=== PATIENT | male | born 1965 | race Caucasian/White ===

== ENCOUNTER 2017-06-21 07:44 | Day surgery (SDC) | payer OTHER ==
--- NOTE | 2017-06-03 15:53 | HP ---
DATE OF ADMISSION: 06/21/2017 The patient is to be admitted to the [facility] surgical system for surgery in the near future (date to be determined). 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 He presents now for repair of a recurrent left inguinal hernia. According to the patient, this hernia was initially repaired seven years ago. He subsequently went on to develop a recurrence which was again repaired and which has since recurred. He has undergone a right inguinal hernia repair which was complicated by an intraabdominal process that required laparotomy as well. He has also had a prior radical prostatectomy. He has no underlying GI, or respiratory complaints to suggest predisposition to hernia formation. The patient states his job is very physical and that that has very likely contributed to his hernia problems. PAST MEDICAL HISTORY: Significant only for prostate cancer. No history of hypertension, diabetes, respiratory, or hepatic insufficiency. PAST SURGICAL HISTORY: Significant for robotic prostatectomy in August of 2014. He also had a laparotomy at the time of his right inguinal hernia repair due to a postoperative complication, the details of which are unclear. He has repair. He has had two hernia surgeries at the level of the left groin. ALLERGIES: None known. REGULAR MEDICATIONS: None. SOCIAL HISTORY: Negative for tobacco and, alcohol. FAMILY HISTORY: Father age 76 with a history of heart disease. Mother age 75 with a history of heart disease. Siblings - one with Crohn disease. REVIEW OF SYSTEMS: Otherwise none. PHYSICAL EXAMINATION: GENERAL: The patient was examined while in the erect and supine positions. ABDOMEN: There are a multitude of scars noted about the lower abdominal wall as well as about the right and left groins. Clinically, there is an obvious recurrent left inguinal hernia noted. It is reducible. The right groin is intact. Testes are bilaterally atrophic. (Note: The patient is wearing a pad for urinary incontinence. The patient states it does deal with impotence.) IMPRESSION: Recurrent left inguinal hernia. PLAN: Repair, recurrent left inguinal hernia with mesh. Indications, alternatives and possible complications were reviewed. Consent was obtained. The patient will be seen preoperatively by Dr. Lashawn Coon. Please refer to his notes for those medical details. SEBASTIÁN ROMERO M.D. [id number] cc: LASHAWN COON MD MTDD
[2017-06-14 11:48] VITALS: BMI 19.6
[2017-06-21] MEDS ORDERED: DEXAMETHASONE SOD PHOSPHATE/PF 10 MG/ML SDV ONE (10:44)
[2017-06-21] MEDS ORDERED: MIDAZOLAM HCL 2 MG/2 ML SINGLE DOSE VIAL ONE (10:44)
[2017-06-21] MEDS ORDERED: BUPIVACAINE HCL/PF (5 MG/ML) 30 ML VIAL IJ ONE ×2 (10:45→12:53)
[2017-06-21] MEDS ORDERED: BUPIVACAINE HCL/PF 0.5% (5MG/ML) 10 ML VIAL ONE (11:01)
[2017-06-21] MEDS ORDERED: ceFAZolin SODIUM 1 GM VIAL ONE (11:35)
[2017-06-21] MEDS ORDERED: ONDANSETRON 4 MG/2 ML VIAL ONE ×2 (11:39→13:45)
[2017-06-21] MEDS ORDERED: DEXAMETHASONE SOD PHOSPHATE 4 MG/1 ML VIAL ONE (11:39)
[2017-06-21] MEDS ORDERED: KETOROLAC TROMETHAMINE 30 MG/1 ML VIAL ONE (11:39)
[2017-06-21] MEDS ORDERED: DESFLURANE GAS 240 ML BOTTLE IH ONE (12:13)
[2017-06-21] MEDS ORDERED: HYDROmorphone HCL/PF 1 MG/ML VIAL (FOR PYXIS CHARGING ONLY) ONE (12:27)
[2017-06-21] MEDS ORDERED: oxyCODONE HCL 5 MG TABLET PO PRN (13:06)
[2017-06-21] MEDS ORDERED: ONDANSETRON 4 MG/2 ML VIAL IVPUSH PRN (13:06)
[2017-06-21] MEDS ORDERED: LACTATED RINGERS SOLUTION 1,000 ML IV SCH (13:15)
[2017-06-21] MEDS ORDERED: oxyCODONE HCL 5 MG TABLET ONE (14:53)
[2017-06-21 16:18] VITALS: BP 135/80; PULSE 68; TEMP 98
--- NOTE | 2017-06-22 11:34 | OP ---
DATE OF OPERATION: 06/21/2017 PREOPERATIVE DIAGNOSIS: Recurrent left inguinal hernia. POSTOPERATIVE DIAGNOSIS: Recurrent left inguinal hernia. PROCEDURE: Open repair recurrent left inguinal hernia with mesh, intermediate wound closure (8 cm). OPERATING SURGEON: Marshall Church MD SANDSTONE SPLITTER: Ugo Vaughan MD ANESTHESIA: General, Lissy Mckee MD HISTORY: This is a 51-year-old man who has had multiple hernia surgeries with 2 previous left-sided repairs. He has also had a prior prostatectomy. He presents for repair of recurrent left inguinal hernia once again. Indications, alternatives , and possible complications reviewed. Consent obtained. DESCRIPTION OF PROCEDURE: With the patient in the supine position under general anesthesia, the left groin was prepped and draped in the usual sterile fashion using chlorhexidine. An 8-cm left groin incision was made between the left pubic tubercle and left anterior iliac spine. The incision was deepened into the subcutaneous space. All identified vessels in the subcutaneous space were clamped, divided, and ligated. The incision was deepened to the level of the external oblique aponeurosis. The external oblique aponeurosis was opened in the direct of its fibers through the external ring. There was significant scar tissue at that level consistent with prior interventions. The inguinal nerve was not identified amidst the scar tissue. The undersuface of the split external oblique aponeurosis was swept clean to the level of the pubic tubercle. At the pubic tubercle, Moline drain was placed around the cord structures. Exploration of the cord revealed a generous indirect component. The sac was freed from its attachment to the cord structures and mobilized to the level of the preperitoneal fat and inferior epigastric vessels. The sac was transfixed at its base with silk suture material x2. The sac was amputated and sent as specimen left inguinal hernia sac. Now directing our attention to the inguinal floor, the attenuated transversalis fascia was split throughout its entire length. The preperitoneal tissues were further reduced. A Davol plug was placed in the preperitoneal space and fanned out under the abdominal wall musculature where it was tacked in place circumferentially with 2-0 Prolene sutures. The transversalis fascia was then imbricated in 2 layers over the Davol plug leaving the Davol plug entirely in the preperitoneal space. This was accomplished with a continuous Prolene suture, which was used also to reconstruct the internal ring to permit only fingertip entrance. An overlay mesh was then fashioned about the entire inguinal ligament floor and tacked in place circumferentially using interrupted 2-0 Prolene sutures. The superior leak of the mesh was keyholed and wrapped around the cord buttressing the internal ring. The cord was then returned to its anatomical position. The overlying external oblique aponeurosis was closed in a continuous fashion using 3-0 Vicryl suture material. The 8-cm wound was then closed in layers. Clara fascia was approximated with interrupted 3-0 chromic sutures. Subcutaneous tissues were approximated with 4-0 Biosyn. Skin was closed using 4-0 Biosyn in the subcuticular space in a continuous fashion. Prior to complete closure of the wound, 10 mL of 0.5% Marcaine was freely instilled in the wound. Dermabond applied. Procedure terminated. NEEDLE AND INSTRUMENT COUNT: Correct. ESTIMATED BLOOD LOSS: Minimal. SPECIMENS: Hernia sac. IMPLANT: Mesh plug. DRAINS: None. COMPLICATIONS: None. The patient tolerated the procedure well, and the procedure was terminated. Maldonado [id number] MTDD
== END 2017-06-21 16:05 | disposition home or self-care (01) ==
LOC: FASU 07:44
PROVIDERS: ATTEND Surgery
PROC: 0YU60JZ Supplement Left Inguinal Region with Synthetic Substitute, Open Approach (ICD-10-PCS; principal; 2017-06-21 11:46)
DX: K40.91 Unilateral inguinal hernia, without obstruction or gangrene, recurrent (principal)
CPT/HCPCS: 94010; 94760